=== PATIENT | male | born 1970 ===

== ENCOUNTER 2016-08-26 10:26 | Emergency (ER) | payer SELFPAY ==
--- NOTE | 2016-09-01 10:17 | ER ---
ADMIT: 08/26/2016 RM/LOC: ER [facility] MR#: [id number] [address] [id number] DAMON HINDS [address] [place] [id number] Emergency Room Report SEX: M AGE: 46 : 1970 DATE: 08/26/2016 HISTORY OF PRESENT ILLNESS: The patient is a 46-year-old male, presents to the emergency room complaining of left shoulder, arm, back, and chest pain. No nausea. No vomiting. He does have a little bit shortness of breath and he is anxious. He does not go to the doctor. Several years ago, he had similar episode and they told him there was nothing. REVIEW OF SYSTEMS: Otherwise negative. MEDICATIONS: Takes no medication. ALLERGIES: NO ALLERGIES. PHYSICAL EXAMINATION: VITAL SIGNS: 148/106 as he was pretty anxious, temp is 96.5, 97% O2 saturation. GENERAL: Alert, mildly anxious. HEENT: Normal. RESPIRATION: Okay. ABDOMEN: Soft, nontender. Epigastric discomfort. EXTREMITIES: Well perfused. No edema. H. pylori reactive. LABORATORY DATA: CBC normal. Chemistry; glucose 129. CLINICAL IMPRESSION: 1. Gastritis. 2. Helicobacter pylori. Prescription for clarithromycin, amoxicillin, and omeprazole. Instructions given. He did improve with the help of GI cocktail and Toradol. ADRI Olvera / Ozzy Richardson MD / estefanyl JOB #: [id number] CC: Ozzy Richardson MD, Attending Physician Mathieu Ma MD, Family Physician
== END 2016-08-26 12:27 | disposition home or self-care (01) ==
LOC: ER 10:26
DX: K29.70 Gastritis, unspecified, without bleeding (principal); B96.81 Helicobacter pylori [H. pylori] as the cause of diseases classified elsewhere